=== PATIENT | male | born 2000 | race Two or more races ===

== ENCOUNTER 2024-10-06 13:05 | Emergency (ER) | payer BC, OTHER ==
[~2024-10-06] VITALS: Ht 188 cm; Wt 99.8 kg
[2024-10-06 14:10] VITALS: BP 131/61; TEMP 98.2; O2SAT 99
== END 2024-10-06 14:26 | disposition home or self-care (01) ==
LOC: ER 13:11
DX: G44.209 Tension-type headache, unspecified, not intractable (principal); R20.2 Paresthesia of skin; R42 Dizziness and giddiness